=== PATIENT | male | born 1990 | race Two or more races ===

== ENCOUNTER 2018-10-09 21:06 | Emergency (ER) | payer SELFPAY ==
[~2018-10-09] VITALS: Ht 177.8 cm; Wt 73.5 kg
--- NOTE | 2018-10-09 21:25 | NUR ---
Dr. Richards at bedside for MSE.
[2018-10-09] MEDS ORDERED: TETRACAINE HCL 0.5% OPHT DROP 2 ML BOTTLE ONE (21:29)
[2018-10-09] MEDS ORDERED: FLUORESCEIN SODIUM 1 MG STRIP ONE (21:30)
[2018-10-09] MEDS ORDERED: LIDOCAINE HCL 1% 20 ML VIAL TP ONE (21:30)
[2018-10-09] MEDS ORDERED: TETRACAINE HCL 0.5% OPHT DROP 2 ML BOTTLE OP ONE (21:45)
[2018-10-09] MEDS ORDERED: FLUORESCEIN SODIUM 1 MG STRIP OP ONE (21:45)
[2018-10-09] MEDS ORDERED: NEOMY/BACITRA/POLYMYXIN B OINT UD PACKET TP ONE (22:17)
[2018-10-09 22:30] VITALS: BP 132/92
== END 2018-10-09 22:30 | disposition home or self-care (01) ==
LOC: ER 21:08
DX: S01.81XA Laceration without foreign body of other part of head, initial encounter (principal); S05.02XA Injury of conjunctiva and corneal abrasion without foreign body, left eye, initial encounter; W26.0XXA Contact with knife, initial encounter; Y93.89 Activity, other specified; Y92.89 Other specified places as the place of occurrence of the external cause; Y99.8 Other external cause status
CPT/HCPCS: 12011; 99283; J3490; A4217; A4663